=== PATIENT | female | born 1975 | race Caucasian/White ===

== ENCOUNTER → 2018-07-09 08:03 | Outpatient (CLI) | payer OTHER, SELFPAY ==
--- NOTE | 2018-07-08 17:36 | BI_ITS ---
MAMMOGRAPHY - BILATERAL SCREENING REASON FOR EXAM: Female, 42 years old. Routine annual screening examination. PERTINENT HISTORY: Grandmother with breast cancer. Aunt with breast cancer. TECHNIQUE: Digital bilateral breast tahnia (3D mammographic acquisition) in the CC and MLO projections. 2-D mediolateral oblique (MLO) and craniocaudad (CC) views of both breasts were obtained. CAD: Full Field Digital Mammography with Computer Added Detection was performed. COMPARISON: Comparison is made with prior study dated August 03, 2012. FINDINGS: Breast Composition: The breasts are heterogeneously dense, which may obscure small masses. There are no dominant masses or suspicious calcifications. Stable 1.4 cm x 1.3 cm well-defined nodule in the deep upper medial portion of the left breast at the 10 or 11:00 position. This was demonstrated to be a small cyst on prior ultrasound. No other significant abnormalities are identified. There has been no significant change since the prior study. BI/SCREENING MAMM (CAD), BILAT IMPRESSION: Stable bilateral screening mammogram. Yearly follow-up mammogram recommended. (A) ASSESSMENT CATEGORY: BIRADS Category 2: Benign. A letter regarding these results will be sent to the patient by the facility within 30 days. Approximately 10% of breast cancers are not detected by mammography. A normal mammogram should not delay biopsy of a clinically suspicious abnormality. [id number] Electronically Signed: Beto Howard MD at 8:05 EDT Tel [phone], Service support ,
== END ==
DX: Z12.31 Encounter for screening mammogram for malignant neoplasm of breast (principal)
CPT/HCPCS: 77063; 77067

== ENCOUNTER → 2018-12-28 | Outpatient (CLI) | payer OTHER, SELFPAY ==
--- NOTE | 2018-12-28 | EMB_PTH ---
PATIENT: [facility]OS[facility]IN[id number] AGE/SX: 43/F ROOM: RE12/28/[address]: Dr. Ashwini Juan MD : 1975 BED: DIS: 12/28/2018 SPEC #: [id number] RECD: 12/28/18 15:08 STATUS: CHICHO REBang #: [id number] MICHAEL: 12/28/18 00:[address]: Ashwini Juan DEPT: SURGICAL PATHOLOGY RECD BY: Steven Santo ENTERED: 12/29/18 13:02 SP TYPE: ENDOM BX/C GALA DR: Dr. Mariana Bobby MD Tissues: Endometrium, NOS Procedures: Surgery Specimen Level IV HEADER OPERATION: Endometrial biopsy PRE-OP DIAGNOSIS: Abnormal uterine bleeding TISSUE SUBMITTED: Endometrial biopsy MICROSCOPIC DIAGNOSIS Endometrial biopsy: Mildly disordered proliferative endometrium. SJ:damian 12/30/18 MICROSCOPIC DESCRIPTION Slides are reviewed. GROSS DESCRIPTION Received is one container labeled with the patient's name and not further designated. The specimen consists of multiple irregular fragments of maurer-pink soft tissue mixed with mucoid tissue that in aggregate measure 2.5 x 2 x 0.1 cm. The specimen is totally submitted in one cassette. / SJ:damian 12/29/18 TC:5 CPT: 72257
[2018-12-28 10:42] VITALS: BMI 35.5
== END | disposition home or self-care (01) ==
LOC: LABSPEC 15:26
PROVIDERS: Family Provider Family Medicine; PCP Family Medicine; Referring Provider Obstetrics & Gynecology; Visit Provider Obstetrics & Gynecology
DX: N93.9 Abnormal uterine and vaginal bleeding, unspecified (principal)
CPT/HCPCS: 88305

== ENCOUNTER 2019-03-03 12:15 | Observation (INO) | payer OTHER, SELFPAY ==
[2018-12-28 10:42] VITALS: BMI 35.5
[2019-02-22 13:29] VITALS: BMI 35.5
[2019-03-03] VITALS (14 sets, daily range): BP systolic 84–117; BP diastolic 49–73; PULSE 60–84; RESP 14–18; TEMP 36.4–36.7; O2SAT 92–99; BMI 35.4
[2019-03-03 07:03] LABS: Internal QC Validated? YES +Cl - CLEAR BKGD; Pregnancy, Urine Negative Negative
[2019-03-03] MEDS: Celecoxib 200 MG Capsule 400 MG PO (07:19)
[2019-03-03] MEDS: Gabapentin 600 MG Tablet PO (07:20)
[2019-03-03] MEDS: Acetaminophen 500 MG Tablet 1000 MG PO ×4 (07:20→23:23)
[2019-03-03] MEDS: Phenazopyridine 95 MG Tablet 190 MG PO (07:20)
[2019-03-03] MEDS: Scopolamine 1mg/72hr Patch 1 PATCH TRANSDERM. (07:20)
[2019-03-03] MEDS: Enoxaparin 40 MG/0.4 ML Syringe SC (07:21)
--- NOTE | 2019-03-03 07:30 | OP.PCM_ITS ---
Problem List (1) Abnormal uterine bleeding Status: Chronic (2) Uterine fibroid Status: Chronic Qualifiers: Comment: plan LAVH BS Cysto Report of Operation Date of Procedure: 03/03/19 Pre-Operative Diagnosis: aub fibroids Post-Operative Diagnosis: same Surgery/Procedure Performed:: lavh bs cysto Description of Surgical Findings:: Enlarged fibroid uterus approximately 14 weeks in size pediatric neuropsychologist: Nory Louis Type of Anesthesia:: General Special Medications: shireen Specimen's removed: uterus tubes cervix Drains: saenz Estimated Blood Loss (mL): 100 Fluids Replaced: crystalloid Description of Procedure: Patient received preoperative antibiotics and SCDs were on preoperatively. Patient was taken back to the operating room and placed in the dorsal lithotomy position. General anesthesia was induced and patient was prepped and draped in normal sterile fashion. Uterine manipulator was placed inside the uterus and Saenz catheter placed in the bladder. The umbilicus was grasped with towel clamps and an intraumbilical incision was made after injecting with quarter percent Marcaine and a Veress needle entered into the abdomen confirmed to be intra-abdominal with a low opening pressure. Abdomen was insufflated with CO2 gas and the Veress needle removed and the 5 mm trocar was placed under direct visualization without complication. Right and left lower quadrants were transilluminated and injected with quarter percent Marcaine and 5 mm ports placed under direct visualization. Pelvis was well visualized see operative findings for additional information. Bilateral fallopian tubes were identified and transected with the LigaSure device across the mesosalpinx to the level of the utero-ovarian ligament which was also transected with the LigaSure device. The broad ligament was opened up by transecting the round ligament bilaterally and skeletonizing the uterine vessels bilaterally and creating a bladder flap using the LigaSure device. The uterine arteries were transected bilaterally with good visualization of the bladder and the ureters were seen to be inferior lateral to the operative area. Attention was then paid to the vaginal portion of the procedure and the cervix was grasped with William clamps and circumferentially injected with dilute vasopressin. A circumferential incision was made and the vaginal mucosa was mobilized off posteriorly and the cul-de-sac entered into sharply and a longneck speculum placed. The anterior cul-de-sac was then identified and entered into sharply. The uterosacral ligaments were clamped cut and suture ligated with 0 Monocryl bilaterally followed by the cardinal ligaments which were clamped cut and suture ligated bilaterally with 0 Monocryl. The uterus serially descended and was removed without difficulty with minimal morcellation. Pelvic sidewall pedicles were checked and noted to have excellent hemostasis. The vaginal mucosa was reapproximated incorporating the posterior peritoneum. This was reapproximated using 0 Vicryl goollo-vq-obugh sutures. Excellent hemostasis was noted. The cystoscopy was then performed and bilateral ureteral strong spray was noted and the bladder was noted to have no abnormality or lesions seen. Saenz catheter was replaced and then attention paid to the abdominal portion of the procedure again. The pelvis and cul-de-sac was well visualized and no significant active bleeding noted but some raw areas were seen on the peritoneum and therefore Shireen was applied. Pressure was taken down and the areas visualized and noted of excellent hemostasis. All ports were removed under direct visualization without complication and the abdomen was desufflated of air. The instruments removed from the abdomen and the vagina vaginal sweep was negative. Port sites on the abdomen were closed with 4-0 Monocryl interrupted sutures and Steri's and windows were applied. She was awoken and taken recovery in stable condition. Grafts/Implants Used: none - Complications none - Admit VTE Documentation VTE Present on Admission: No VTE Mechan Device Prophylaxis: SCD's
--- NOTE | 2019-03-03 07:30 | PCM.HPOB.BLA ---
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 Required: No Is patient in pain?: No Allergies penicillin G Allergy (Mild, Verified 02/24/19 12:04) Other Medications albuterol sulfate HFA 90 mcg/actuation aerosol inhaler 1 puff INHALATION Q6H PRN 12/28/18 [History Confirmed 02/24/19] budesonide-formoterol HFA 160 mcg-4.5 mcg/actuation aerosol inhaler 2 puff INHALATION BID 12/28/18 [History Confirmed 02/24/19] metoprolol tartrate 50 mg tablet 50 mg PO DAILY 12/28/18 [History Confirmed 02/24/19] montelukast 10 mg tablet 10 mg PO QPM 12/28/18 [History Confirmed 02/24/19] sertraline 100 mg tablet 100 mg PO DAILY 12/28/18 [History Confirmed 02/24/19] Omeprazole [Prilosec] 10 mg PO DAILY 02/24/19 [History Confirmed 02/24/19] Is last menstrual period known: No Post menopausal: No [facility] : No [facility] History Asthma (Acute) Depression (Acute) Family history of breast cancer (Acute) Seasonal allergies (Acute) Surgical History Hx laparoscopic cholecystectomy (Acute) Family History Mother Cancer endometrial cancer Father Hypertension Grandmother Cancer endometrial cervical Breast cancer Ovarian cancer Grandfather Cancer prostate Parkinsons Social History (Updated 02/26/19 @ 04:40 by Ashwini Juan MD) Smoking Status: Former smoker alcohol intake: never substance use type: does not use caffeine: Yes what type of physical activity do you participate in: walking seatbelt use: always do you feel safe at home: Yes additional social history: - [employer] HPI pre op ERAS: Details: JOSUE HAINES is a 43 year old who presents for abnormal uterine bleeding and fibroids. Pregancy History 1 Elective abortions Hx Para 1 Spontaneous abortions Hx # Term Pregnancies Ectopic pregnancies Hx # Pregnancies Multiple births # of living children Past Pregnancies Del. Date Name GA/Weeks Outcome Route Bth Weight [facility] 2000 [facility] live - full term ROS Const Constitutional: Denies fatigue, fever(s), headache(s), increased appetite, poor appetite, weight gain or weight loss ENT ENT: Denies dizziness or dry mouth Cardio Card: Denies chest pain Resp Resp: Denies cough or dyspnea GI GI: Reports as per HPI; denies abdominal pain, constipation, nausea or vomiting : Reports as per HPI, urinary frequency and urinary urgency; denies difficulty urinating, painful urination, pelvic pain, urinary incontinence, urinary hesitancy, vaginal discharge, vaginal dryness, vaginal odor or vaginal itching Musc Musc: Denies joint pain, back pain or muscle weakness Skin Skin/Breast: Denies hair loss, change in hair, dry skin, breast lump, breast pain or breast skin changes Neuro Neuro: Denies dizziness Psych Psych: Denies anxiety or depression Endo Endo: Denies cold intolerance, excessive sweating, heat intolerance or increased thirst Gilberto/Lymph Hematologic/Lymphatic: Denies easy bleeding, Denies easy bruising, Denies enlarged lymph nodes Exam Const General: cooperative, healthy appearing, comfortable, no acute distress, well developed Orientation: alert [facility] Head: normal to inspection, normocephalic Ears: hearing grossly normal bilaterally, external ears normal Nose: external nose normal, nares normal Face and sinus: normal facial exam Neck Neck: normal visual inspection, no lymphadenopathy, trachea midline Thyroid: thyroid normal Chest Chest palpation & inspection: normal inspection of the chest Resp Effort & Inspection: normal respiratory effort Auscultation: clear to auscultation bilaterally Cardio Rate: regular rate Rhythm: regular rhythm Heart Sounds: S1 normal, S2 normal GI Inspection: normal to inspection, non-distended Palpation: soft, no hepatosplenomegaly General: bladder normal to palpation External Female Exam: normal external appearance, normal appearance of the urethra Urethra: normal appearance of the urethra Speculum Exam - Vagina: normal appearance of the vagina, normal vaginal discharge Speculum Exam - Cervix: normal appearance of the cervix, nontender Bimanual Exam- Vagina & Uterus: bladder normal to palpation, No cervical tenderness Bimanual Exam- Adnexa, other: pelvic support normal Pelvic Support: normal Musc Cervical Spine: other Other: gross motor intact no deficits, full bilateral strength Skin General: no rashes or lesions noted Neuro General: alert, awake, moves all extremities, no focal motor deficits Motor: muscle tone normal throughout Extrem General: normal to inspection, no pedal edema Psych Appearance: grossly normal Mental Status: mental status grossly normal Affect: normal affect Speech and Movement: speech and movement normal Assessment & Plan Problems 1. Abnormal uterine bleeding N93.9 2. Intramural leiomyoma of uterus D25.1 plan LAVH BS Cysto Plan plan LAVH bs cysto. discussed surgical risks including risks of anesthesia, infection, bleeding, injury to bowel, bladder or blood vessels, and patient wishes to proceed with surgery. Coding Level of Care Code No Charge Diagnoses Abnormal uterine bleeding N93.9 Intramural leiomyoma of uterus D25.1 ??Uterine leiomyoma location: intramural UPDATE- I have seen the patient and performed any clinically relevant updates to the history and physical exam. Ashwini Juan MD
[2019-03-03] MEDS: dexAMETHasone 10 MG/ML Vial 8 MG IV (07:32)
[2019-03-03] MEDS: Magnesium Sulfate 4gm/100mL 4 GM/100 ML IV.SOLN. IV (07:32)
[2019-03-03] MEDS: Lactated Ringers 1,000 ML 40 ML IV (07:33)
[2019-03-03 07:35] LABS: Absolute Lymphocyte Count 1.27 X10^3/ul (0.83-4.51); Absolute Neutrophil Count 3.5 X10^3/uL (2.0-7.7); Basophil# 0.02 X10^3/uL; Basophil% 0.4 % (0-1); Eosinophil# 0.12 X10^3/uL; Eosinophils% 2.3 % (0-5); Hematocrit 38.9 % (37-47); Hemoglobin 12.8 g/dl (12.0-15.0); Lymphocyte # 1.27 X10^3/ul (4.0); Lymphocyte % 24.2 % (19-41); Mean Corp Hgb Conc 32.9 g/gl (32-36); Mean Corpuscular Hgb 28.2 pg (27.0-32.0); Mean Corpuscular Volume 85.7 fL (81-99); Mean Platelet Vol. 9.8 fl (6.2-12.0); Monocyte# 0.31 X10^3/uL; Monocyte% 5.9 % (0-10); Neutrophil # 3.51 X10^3/uL (2.7-7.7); Platelet Count 208 K/mm3 (150-450); RBC Distribution Width CV 13.7 % (11.6-14.6); RBC Distribution Width SD 42.5 fl (35.1-43.9); Red Blood Count 4.54 M/mm3 (4.2-5.4); White Blood Count 5.2 K/mm3 (4.4-11.0)
[2019-03-03 07:41] LABS: Bedside Glucose 130 mg/dL (70-110)
[2019-03-03 07:43] LABS: POSITIVE COUNT NO; POSITIVE DIFFERENTIAL NO; POSITIVE MORPHOLOGY NO
--- NOTE | 2019-03-03 08:00 | HYST_PTH ---
PATIENT: JOSUE HAINES LOC: [facility] U#:[id number] AGE/SX: 43/F ROOM: MS316 RE03/03/[address]: Dr. Ashwini Juan MD : 1975 BED: 1 DIS: 03/04/2019 SPEC #: [id number] RECD: 03/03/19 11:17 STATUS: CHICHO MATIAS #: [id number] MICHAEL: 03/03/19 08:[address]: Ashwini Juan DEPT: SURGICAL PATHOLOGY RECD BY: Steven Santo ENTERED: 03/03/19 11:31 SP TYPE: HYSTERECT OTHR DR: Dr. Mariana Bobby MD Tissues: Uterus, NOS Procedures: Surgery Specimen Level V HEADER OPERATION: ERAS, hysterectomy, lap assisted vaginal, salpingectomy PRE-OP DIAGNOSIS: Abnormal uterine bleeding TISSUE SUBMITTED: Uterus, cervix, bilateral fallopian tubes MICROSCOPIC DIAGNOSIS Uterus, cervix and bilateral fallopian tubes, vaginal hysterectomy and bilateral salpingectomy: Cervix - mild chronic inflammation. Endometrium - proliferative endometrium. Myometrium - leiomyomas (largest measuring 7.5 cm in diameter). - Focal superficial adenomyosis. Bilateral fallopian tubes - no pathologic diagnosis. SJ:damian 03/08/19 COMMENT Please make reference to previous specimen ([id number]) endometrial biopsy with diagnosis of mildly disordered proliferative endometrium. MICROSCOPIC DESCRIPTION Slides are reviewed. GROSS DESCRIPTION Received in fixative is one container labeled with the patient's name and designated uterus, cervix, bilateral fallopian tubes. The specimen consists of a fragmented uterus with detached cervical tissue. The fragmented pieces of uterus and cervix without fallopian tubes weigh 402 gm and measures in aggregate 16.5 x 12.5 x 6 cm. Due to fragmented nature of the specimen, right and left anterior and posterior cervix cannot be delineated and right and left fallopian tube cannot be differentiated from each other due to lack of orientation. The detached cervix measures 8 cm in length and 3.5 cm in diameter. Due to fragmented nature, no proper endometrial cavity is identified. The uterine serosa is pinkish-maurer, smooth. Serial sectioning of the specimen reveals a large leiomyoma most likely in the fundic portion of the uterus measuring 7.5 cm in diameter. Smaller leiomyomas are also identified measuring 0.7 cm in diameter. Serial sectioning of all the leiomyomas reveal homogenous, maurer-white cut surfaces. No areas of necrosis or hemorrhage are identified. One fallopian tube measures 6.9 cm in length and 1.2 cm in diameter. The other fallopian tube measures 6.9 cm in length and 0.8 cm in diameter. Serial sectioning of both fallopian tubes reveal pinpoint lumen. Fimbrial ends are also present. Change House Attendant sections are submitted as follows: 1 - possible anterior cervix, 2 - possible posterior cervix, 3 & 4 - possible anterior wall endomyometrium, 5 & 6 - possible posterior wall endomyometrium, 7-10 - renewals representative sections of leiomyomas, 11 - one fallopian tube, 12 - other fallopian tube. / FA:damian 03/03/19 More sections of fallopian tube including fimbrial end are submitted in two cassettes, 13 & 14 / SJ:damian 03/07/19 TC:1 CPT: 39476
[2019-03-03] MEDS: Bupivacaine 0.25% 30 ML Vial (08:19)
[2019-03-03] MEDS: Vasopressin 20 UNITS/ML Vial IM (08:24)
[2019-03-03] MEDS: Ondansetron 4 MG/2 ML Vial IV (09:59)
[2019-03-03] MEDS: Ketorolac 15 MG/ML Vial 30 MG IV ×3 (11:11→23:24)
[2019-03-03] MEDS: Lactated Ringers 1,000 ML 70 ML IV (12:41)
[2019-03-03] MEDS: Docusate Sodium 100 MG Capsule PO (22:27)
[2019-03-04 02:15] VITALS: BP 94/54; PULSE 77; RESP 18; TEMP 36.7; O2SAT 96
[2019-03-04] MEDS: Lactated Ringers 1,000 ML 70 ML IV (02:24)
[2019-03-04] MEDS: Ketorolac 15 MG/ML Vial 30 MG IV (05:48)
[2019-03-04 06:08] LABS: Hematocrit 36.3 % (37-47); Hemoglobin 11.8 g/dl (12.0-15.0); Mean Corp Hgb Conc 32.5 g/gl (32-36); Mean Corpuscular Hgb 27.9 pg (27.0-32.0); Mean Corpuscular Volume 85.8 fL (81-99); Mean Platelet Vol. 10.1 fl (6.2-12.0); Platelet Count 200 K/mm3 (150-450); RBC Distribution Width CV 13.6 % (11.6-14.6); RBC Distribution Width SD 42.5 fl (35.1-43.9); Red Blood Count 4.23 M/mm3 (4.2-5.4); White Blood Count 11.1 K/mm3 (4.4-11.0)
[2019-03-04 06:27] LABS: Scan Indicated on CBC? Y/N NO
[2019-03-04] MEDS: Acetaminophen 500 MG Tablet 1000 MG PO (07:24)
[2019-03-04 07:25] VITALS: O2SAT 97
--- NOTE | 2019-03-04 07:42 | PN.OBGYN_ITS ---
Subjective: Doing well, pain controlled. Has been up in chair. Denies CP, SOB, N/V. - Physical Exam General: Alert, Oriented x3 Abdomen: Soft, Non-Distended, - - minimal tenderness. Dressings dry and intact Vital Signs Temp Pulse Resp BP Pulse Ox 98.1 F 77 18 94/54 L 96 03/04/19 02:15 03/04/19 02:15 03/04/19 02:15 03/04/19 02:15 03/04/19 02:15 Oxygen Flow Rate (L/min) 6 Oxygen Delivery Method Room Air Weight: 219 lb 9.286 oz Body Mass Index (BMI) 35.4 Intake and Output for Last 24 Hours 03/02/19 03/03/19 03/04/19 23:59 23:59 23:59 Intake Total 2695 / 3715 1740 / 1740 Output Total 1994 1875 / 1875 Balance 1725 / 1720 -135 / -135 Laboratory Tests Past 24 Hrs 03/03/19 03/03/19 03/04/19 07:15 07:15 05:20 WBC 5.2 11.1 H RBC 4.54 4.23 Hgb 12.8 11.8 L Hct 38.9 36.3 L MCV 85.7 85.8 MCH 28.2 27.9 MCHC 32.9 32.5 RDW 13.7 13.6 RDW Differential 42.5 42.5 Plt Count 208 200 MPV 9.8 10.1 Immature Gran % (Auto) 0.200 Neut % (Auto) 67.0 Lymph % (Auto) 24.2 Baker % (Auto) 5.9 Eos % (Auto) 2.3 Baso % (Auto) 0.4 Absolute Neuts (auto) 3.5 Absolute Lymphs (auto) 1.27 Total Counted Not Reportable Blood Type O POSITIVE Antibody Screen NEGATIVE Medical Necessity - Tobacco Use Smoking Status: Former smoker Assessment/Plan [place] BS, cysto per Dr. Juan. Postop day #1: routine care has postop visits scheduled home today
--- NOTE | 2019-03-04 07:45 | DCINST_ITS ---
Allergies/Adverse Reactions: Allergies penicillin G Allergy (Mild, Verified 02/24/19 12:04) Other Medications to take at Discharge albuterol sulfate HFA 90 mcg/actuation aerosol inhaler 1 puff INHALATION Q6H PRN 12/28/18 budesonide-formoterol HFA 160 mcg-4.5 mcg/actuation aerosol inhaler 2 puff INHALATION BID 12/28/18 metoprolol tartrate 50 mg tablet 50 mg PO DAILY 12/28/18 montelukast 10 mg tablet 10 mg PO QPM 12/28/18 sertraline 100 mg tablet 100 mg PO DAILY 12/28/18 Omeprazole [Prilosec] 10 mg PO DAILY 02/24/19 Naproxen [Naprosyn] 250 - 500 mg PO Q8H PRN PRN #30 tab 03/03/19 Oxycodone HCl/Acetaminophen [Percocet 5-325] 1 - 2 tab PO Q4H PRN PRN 7 Days #15 tab 03/03/19 The following prescriptions were given: Naproxen [Naprosyn] 250 - 500 mg PO Q8H PRN PRN #30 tab PRN Reason: MILD PAIN Transmission Status: Received by [facility] Oxycodone HCl/Acetaminophen [Percocet 5-325] 1 - 2 tab PO Q4H PRN PRN 7 Days #15 tab PRN Reason: Pain Transmission Status: Received by [facility] Primary Care Physician: Mariana Bobby MD [Primary Care Provider] - Test Results: Test results from this visit will be discussed in further detail at your follow- up appointment, if applicable.
[2019-03-04] MEDS: Docusate Sodium 100 MG Capsule PO (08:03)
[2019-03-04] MEDS: Enoxaparin 40 MG/0.4 ML Syringe SC (08:03)
[2019-03-04 08:07] VITALS: BP 112/53; PULSE 66; RESP 16; TEMP 36.4; O2SAT 97
== END 2019-03-04 11:30 | disposition home or self-care (01) ==
LOC: SDC 14:41
PROVIDERS: Admitting Provider Obstetrics & Gynecology; Family Provider Family Medicine; PCP Family Medicine; Referring Provider Obstetrics & Gynecology; Visit Provider Obstetrics & Gynecology
PROC: 0UT9FZZ Resection of Uterus, Via Natural or Artificial Opening With Percutaneous Endoscopic Assistance (ICD-10-PCS; CPT 58554; principal; 2019-03-03 07:35)
DX: D25.1 Intramural leiomyoma of uterus (principal); N80.0 Endometriosis of uterus; J45.909 Unspecified asthma, uncomplicated; F32.9 Major depressive disorder, single episode, unspecified; Z79.899 Other long term (current) drug therapy; Z87.891 Personal history of nicotine dependence; K21.9 Gastro-esophageal reflux disease without esophagitis
CPT/HCPCS: 58554; 36415; 81025; 82962; 85025; 85027; 86850; 86900; 88307; 96372; 96374; 96376; 99218; J7120; G0378; G0379; J2405; J3490